=== PATIENT | female | born 1945 | race Two or more races ===

== ENCOUNTER 2022-01-23 12:07 | Inpatient (IN) | payer OTHER ==
[~2022-01-23] VITALS: Ht 152.4 cm; Wt 47.2 kg
[2022-01-23] VITALS (11 sets, daily range): BP systolic 121–154; BP diastolic 53–69
[2022-01-23 13:57] LABS: Basophils # (auto) 0.1 10 ^3/uL (0-0.2)
[2022-01-23 13:57] LABS: Urine Bacteria NONE SEEN /hpf (None Seen); Urine Blood Negative /uL (Negative); Urine Specific Gravity 1.016 (1.001-1.035); Urine WBC 40 /hpf (0 - 5)
[2022-01-23 13:59] LABS: Basophils % (auto) 0.4 % (0.0-2.0); Eosinophils # (auto) 0 10 ^3/uL (0-0.8); Eosinophils % (auto) 0.2 % (0.0-7.0); Hematocrit 22.1 % (36.0-46.0); Lymphocytes # (auto) 1.1 10 ^3/uL (0.4-5.4); Lymphocytes % (auto) 5.7 % (10.0-50.0); Mean Corpuscular Hemoglobin 21.8 pg (28.0-32.0); Mean Corpuscular Hgb Conc. 31.5 g/dL (32.0-36.0); Mean Corpuscular Volume 69.2 fL (80.0-100.0); Monocytes # (auto) 1.2 10 ^3/uL (0-1.3); Monocytes % (auto) 5.9 % (0.0-12.0); Neutrophils # (auto) 17.1 10 ^3/uL (1.6-8.6); Neutrophils % (auto) 87.8 % (37.0-80.0); Red Cell Distribution Width 16.3 % (11.8-14.3); White Blood Cell 19.5 10^3/uL (4.4-10.8)
[2022-01-23 14:13] LABS: INR 1.16 (0.9-1.15)
[2022-01-23 14:15] LABS: Albumin 2.6 g/dL (3.4-5.0); Calcium 9.1 mg/dL (8.5-10.1); Magnesium 2.2 mg/dL (1.6-2.6); Potassium 4.6 mmol/L (3.5-5.1)
[2022-01-23 14:18] LABS: BUN/Creatinine Ratio 62.3; Bilirubin, Total 0.4 mg/dL (0.2-1.0); Total Protein 6.6 g/dL (6.4-8.2)
[2022-01-23] MEDS ORDERED: cefTRIAXone 1GM/50ML D5W 50 ML IV ONE (16:00)
[2022-01-23] MEDS ORDERED: DOCUSATE SOD 100 MG CAP PO PRN (17:00)
[2022-01-23] MEDS ORDERED: SODIUM CHLORIDE 0.9% 1,000 ML IV ONE (17:00)
[2022-01-23] MEDS ORDERED: ONDANSETRON HCL 4 MG/2 ML VIAL IV PRN (17:00)
[2022-01-23] MEDS ORDERED: HYDROcodone-ACET 5/325MG TAB PO PRN (17:00)
[2022-01-23] MEDS ORDERED: ACETAMINOPHEN 325 MG TAB PO PRN (17:00)
[2022-01-23] MEDS ORDERED: NITROGLYCERIN 0.4 MG SL TAB SL PRN (17:00)
[2022-01-23] MEDS ORDERED: MORPHINE SULFATE INJ 2 MG/ml SYRG IV PRN (17:00)
[2022-01-23 18:18] LABS: % Iron Saturation 4.5 % (15-50)
[2022-01-24] VITALS (7 sets, daily range): BP systolic 122–141; BP diastolic 51–63
[2022-01-24] MEDS ORDERED: diphenhdrAMINE HCL 12.5 MG/5 ML UD PO ONE (00:30)
[2022-01-24 06:38] LABS: Basophils # (auto) 0.1 10 ^3/uL (0-0.2); Eosinophils # (auto) 0.1 10 ^3/uL (0-0.8)
[2022-01-24 06:39] LABS: Basophils % (auto) 0.4 % (0.0-2.0); Eosinophils % (auto) 0.3 % (0.0-7.0); Hematocrit 30.2 % (36.0-46.0); Hemoglobin 10.2 g/dL (12.2-16.2); Lymphocytes # (auto) 1.3 10 ^3/uL (0.4-5.4); Lymphocytes % (auto) 5.8 % (10.0-50.0); Mean Corpuscular Hemoglobin 24.8 pg (28.0-32.0); Mean Corpuscular Hgb Conc. 33.7 g/dL (32.0-36.0); Mean Corpuscular Volume 73.8 fL (80.0-100.0); Monocytes # (auto) 1.7 10 ^3/uL (0-1.3); Monocytes % (auto) 7.5 % (0.0-12.0); Neutrophils # (auto) 19.8 10 ^3/uL (1.6-8.6); Red Cell Distribution Width 18.8 % (11.8-14.3)
[2022-01-24 06:48] LABS: BUN/Creatinine Ratio 71.8; Calcium 9.3 mg/dL (8.5-10.1); Potassium 3.6 mmol/L (3.5-5.1)
[2022-01-24] MEDS ORDERED: SODIUM CHLORIDE LOCK 10 ML ONE (08:11)
[2022-01-24] MEDS ORDERED: MIDAZOLAM HCL 5 MG/ML-1ML VIAL ONE (08:11)
[2022-01-24] MEDS ORDERED: LIDOCAINE VISCOUS 2% 15ML UD ONE (08:11)
[2022-01-24] MEDS ORDERED: fentaNYL CITRATE 100 MCG/2 ML VL ONE (08:11)
[2022-01-24] MEDS ORDERED: diphenhdrAMINE HCL 50 MG/1 ML VL ONE (08:11)
[2022-01-24] MEDS ORDERED: OMNIPAQUE ORAL SOLN 500ml 12mg/ml PO ONE (09:07)
[2022-01-24] MEDS ORDERED: EPINEPHrine HCL 1 MG/10 ML SYRG ONE (10:00)
[2022-01-24] MEDS ORDERED: FLUMAZENIL 0.1 MG/ML INJ 10ML MDV IV ONE (10:00)
[2022-01-24] MEDS ORDERED: NALOXONE HCL 0.4 MG/ML VIAL ONE (10:00)
[2022-01-24] MEDS ORDERED: DEXTROSE (50%) 50ML SYRG IV PRN (12:45)
[2022-01-24] MEDS ORDERED: GLIP2.5T4 PO (12:51)
[2022-01-24] MEDS ORDERED: BUSP10TA90 PO (12:51)
[2022-01-24] MEDS ORDERED: GLIP2.5T5 PO (12:52)
[2022-01-24] MEDS ORDERED: PANT40T PO (12:52)
[2022-01-24] MEDS ORDERED: SUCR1SUS10 PO (12:52)
[2022-01-24] MEDS ORDERED: FER325T PO (12:52)
[2022-01-24] MEDS ORDERED: FELO5TAB6 PO (12:52)
[2022-01-24] MEDS: FERROUS SULFATE 325mg EC TAB PO SCH (13:00)
[2022-01-24] MEDS: SUCRALFATE 1 GM/10 ML ORAL SUSP PO SCH ×3 (13:00→21:07)
[2022-01-24] MEDS ORDERED: TRAZ100T3 PO (16:03)
[2022-01-24] MEDS ORDERED: LORA0.5T20 PO (16:03)
[2022-01-24] MEDS ORDERED: SERT25TA14 PO (16:03)
[2022-01-24] MEDS ORDERED: POLYETHYLENE GLYCOL 17 GM PWDR PO PRN (17:00)
[2022-01-24] MEDS: metroNIDAZOLE 500 MG TAB PO SCH ×2 (17:00→21:08)
[2022-01-24] MEDS ORDERED: levoFLOXacin 500MG 100 ML IV ONE (17:00)
[2022-01-24] MEDS ORDERED: ALBUTEROL SULF 2.5 MG/0.5ML(0.5%) NEB SOLN NEB PRN (17:00)
[2022-01-24] MEDS: InsuLIN REG 1unit/0.01ml Soln (100units/ml) SC SCH ×2 (17:52→23:56)
[2022-01-24] MEDS: ACCU-CHEK COMFORT CURVE STRIP VI SCH ×2 (18:11→23:55)
[2022-01-24] MEDS ORDERED: TEMAZEPAM 15 MG CAP PO ONE (20:30)
[2022-01-24] MEDS: PANTOPRAZOLE 40 MG TAB PO SCH (21:08)
[2022-01-25 05:00] VITALS: BP 166/62
[2022-01-25] MEDS: metroNIDAZOLE 500 MG TAB PO SCH ×2 (05:35→17:02)
[2022-01-25] MEDS: InsuLIN REG 1unit/0.01ml Soln (100units/ml) SC SCH ×3 (05:36→17:18)
[2022-01-25] MEDS: ACCU-CHEK COMFORT CURVE STRIP VI SCH ×3 (05:37→17:19)
[2022-01-25 06:01] VITALS: BP 147/67
[2022-01-25 06:36] LABS: Basophils # (auto) 0.1 10 ^3/uL (0-0.2); Basophils % (auto) 0.4 % (0.0-2.0); Eosinophils # (auto) 0.1 10 ^3/uL (0-0.8); Lymphocytes # (auto) 1.3 10 ^3/uL (0.4-5.4); Lymphocytes % (auto) 6.6 % (10.0-50.0)
[2022-01-25 06:37] LABS: Eosinophils % (auto) 0.5 % (0.0-7.0); Hematocrit 33.5 % (36.0-46.0); Hemoglobin 10.8 g/dL (12.2-16.2); Mean Corpuscular Hemoglobin 23.6 pg (28.0-32.0); Mean Corpuscular Hgb Conc. 32.1 g/dL (32.0-36.0); Mean Corpuscular Volume 73.7 fL (80.0-100.0); Monocytes # (auto) 1.3 10 ^3/uL (0-1.3); Monocytes % (auto) 6.7 % (0.0-12.0); Neutrophils # (auto) 16.3 10 ^3/uL (1.6-8.6); Neutrophils % (auto) 85.8 % (37.0-80.0); Red Blood Cells 4.55 10^6/uL (4.0-5.20); Red Cell Distribution Width 19.4 % (11.8-14.3)
[2022-01-25 06:44] LABS: Potassium 4.9 mmol/L (3.5-5.1)
[2022-01-25 06:49] LABS: Albumin 2.5 g/dL (3.4-5.0); BUN/Creatinine Ratio 45.2; Calcium 9.3 mg/dL (8.5-10.1)
[2022-01-25 06:57] LABS: Bilirubin, Total 0.8 mg/dL (0.2-1.0); Total Protein 6.3 g/dL (6.4-8.2)
[2022-01-25] MEDS: SUCRALFATE 1 GM/10 ML ORAL SUSP PO SCH ×3 (07:17→17:14)
[2022-01-25 08:00] VITALS: BP 127/64
[2022-01-25 09:00] VITALS: BP 127/64
[2022-01-25] MEDS ORDERED: levoFLOXacin 500MG 100 ML IV SCH (10:00)
[2022-01-25] MEDS: PANTOPRAZOLE 40 MG TAB PO SCH (10:19)
[2022-01-25] MEDS: FERROUS SULFATE 325mg EC TAB PO SCH (10:19)
[2022-01-25 13:00] VITALS: BP 134/69
[2022-01-25 17:00] VITALS: BP 131/76
[2022-01-26] MEDS ORDERED: levoFLOXacin 250MG 50 ML IV SCH (10:00)
== END 2022-01-25 18:45 | disposition home or self-care (01) | DRG 391 ==
LOC: ER 12:07 → TELE 17:00 → TELE-EAST 23:27
PROVIDERS: ADMIT Internal Medicine; ATTEND Internal Medicine
PROC: 30233N1 Transfusion of Nonautologous Red Blood Cells into Peripheral Vein, Percutaneous Approach (ICD-10-PCS; 2022-01-23)
PROC: 0DB68ZX Excision of Stomach, Via Natural or Artificial Opening Endoscopic, Diagnostic (ICD-10-PCS; principal; 2022-01-24 10:15)
DX: K29.70 Gastritis, unspecified, without bleeding (principal); J18.9 Pneumonia, unspecified organism; E87.1 Hypo-osmolality and hyponatremia; N39.0 Urinary tract infection, site not specified; J90 Pleural effusion, not elsewhere classified; J98.11 Atelectasis; R18.8 Other ascites; D50.9 Iron deficiency anemia, unspecified; D75.839 Thrombocytosis, unspecified; E11.9 Type 2 diabetes mellitus without complications; I10 Essential (primary) hypertension; K86.9 Disease of pancreas, unspecified; Z20.822 Contact with and (suspected) exposure to COVID-19; Z90.49 Acquired absence of other specified parts of digestive tract; D63.8 Anemia in other chronic diseases classified elsewhere; Z79.84 Long term (current) use of oral hypoglycemic drugs
CPT/HCPCS: 36415; 36430; 43239; 71045; 74176; 80048; 80053; 81001; 82728; 82962; 83540; 83550; 83735; 84484; 85025; 85610; 85730; 86850; 86900; 86901; 86920; 87086; 93005; 96365; 99291; G0378; J0696; J1815; J1956; J2250